=== PATIENT | male | born 1975 | race Caucasian/White ===

== ENCOUNTER 2023-03-29 08:36 | Outpatient (CLI) | payer BC, SELFPAY | END 2023-03-29 08:37 | disposition home or self-care (01) | LOC: LKVREF 08:38 | PROVIDERS: PCP Family Medicine; Visit Provider Family Medicine | DX: Z00.00 Encounter for general adult medical examination without abnormal findings (principal); R35.1 Nocturia; Z12.5 Encounter for screening for malignant neoplasm of prostate | CPT/HCPCS: G0103 ==